=== PATIENT | female | born 2000 | race Caucasian/White ===

== ENCOUNTER 2024-01-05 10:47 | Outpatient (CLI) | payer MEDICAID | END 2024-01-05 23:59 | disposition home or self-care (01) | LOC: RAD 10:47 | PROVIDERS: ATTEND Obstetrics & Gynecology | DX: O09.91 Supervision of high risk pregnancy, unspecified, first trimester (principal); Z3A.13 13 weeks gestation of pregnancy | CPT/HCPCS: 76801 ==